=== PATIENT | female | born 1965 | race Caucasian/White ===

== ENCOUNTER 2018-04-05 08:25 | Outpatient (REF) | payer SELFPAY ==
[2018-04-05 22:11] LABS: TSH (W/Ref FT4) 5.02 uIU/mL (0.358-3.74)
== END 2018-04-05 08:26 ==
LOC: NCHCN 08:25
PROVIDERS: PCP Nurse Practitioner Family; Visit Provider Nurse Practitioner Family
DX: E03.9 Hypothyroidism, unspecified (principal)
CPT/HCPCS: 84439; 84443

== ENCOUNTER 2018-10-05 08:00 | Outpatient (REF) | payer MEDICAID, SELFPAY ==
[2018-10-05 22:26] LABS: TSH (W/Ref FT4) 6.36 uIU/mL (0.358-3.74)
[2018-10-05 22:44] LABS: FREE T4 1.06 ng/dL (0.76-1.46)
== END 2018-10-05 08:20 ==
LOC: NCHCN 08:00
PROVIDERS: PCP Nurse Practitioner Family; Visit Provider Nurse Practitioner Family
DX: E03.9 Hypothyroidism, unspecified (principal)
CPT/HCPCS: 84439; 84443

== ENCOUNTER 2019-06-08 09:46 | Outpatient (REF) | payer MEDICAID, SELFPAY ==
[2019-06-08 21:34] LABS: TSH (W/Ref FT4) 3.81 uIU/mL (0.36-3.74)
[2019-06-08 21:56] LABS: FREE T4 1.12 ng/dL (0.76-1.46)
== END 2019-06-08 10:06 ==
LOC: NCHCN 09:46
PROVIDERS: PCP Nurse Practitioner Family; Visit Provider Nurse Practitioner Family
DX: E03.9 Hypothyroidism, unspecified (principal)
CPT/HCPCS: 84439; 84443

== ENCOUNTER 2019-11-03 13:24 | Outpatient (REF) | payer MEDICAID, SELFPAY ==
[2019-11-03 21:52] LABS: TSH 1.71 uIU/mL (0.36-3.74)
== END 2019-11-03 13:44 ==
LOC: NCHCN 13:24
PROVIDERS: PCP Nurse Practitioner Family; Visit Provider Nurse Practitioner Family
DX: E03.9 Hypothyroidism, unspecified (principal); F41.1 Generalized anxiety disorder; R22.9 Localized swelling, mass and lump, unspecified
CPT/HCPCS: 84443

== ENCOUNTER 2020-08-13 16:37 | Outpatient (REF) | payer MEDICAID, SELFPAY ==
[2020-08-13 21:58] LABS: Hemoglobin A1C 5.7 % (<5.7)
[2020-08-15 15:00] LABS: ANA Interpretation Positive (Negative); ANA Titer Pattern 1:80 Homogeneous
[2020-08-16 13:21] LABS: SS-A Antibody 1.3 Units (<20.0); SS-B (La) Ab, IgG 1.3 Units (<20.0)
== END 2020-08-13 16:57 ==
LOC: NCHCN 16:37
PROVIDERS: PCP Nurse Practitioner Family; Visit Provider Nurse Practitioner Community Health
DX: R79.89 Other specified abnormal findings of blood chemistry (principal); K12.1 Other forms of stomatitis; Z13.1 Encounter for screening for diabetes mellitus
CPT/HCPCS: 83036; 86038; 86235

== ENCOUNTER 2020-09-03 17:57 | Outpatient (REF) | payer MEDICAID, SELFPAY ==
[2020-09-03 19:19] LABS: HCT 41.9 % (36.0-46.0); HGB 13.7 g/dL (11.2-15.7); MCH 29.1 pg (27.0-33.0); MCHC 32.7 % (32.0-36.0); MCV 89.1 fL (80-95); Platelet Count 304 10^3/uL (130-400); RDW 12.6 % (11.7-14.6); RDW-SD 41.1 fL; WBC 7.02 10^3/uL (4.4-10.8)
[2020-09-03 20:27] LABS: Calculated LDL 242 mg/dL (<100); Cholesterol 342 mg/dL (<200); Ferritin 35 ng/mL (8-252); HDL Cholesterol 69 mg/dL (40-60); Triglyceride 157 mg/dL (<150); Vitamin B12 332 pg/mL (193-986)
[2020-09-05 10:46] LABS: HIV-1/2 Ag & Ab Screen Negative (Negative)
== END 2020-09-03 18:17 ==
LOC: NCHCN 17:57
PROVIDERS: PCP Nurse Practitioner Family; Visit Provider Nurse Practitioner Family
DX: E78.00 Pure hypercholesterolemia, unspecified (principal); K13.79 Other lesions of oral mucosa; Z11.4 Encounter for screening for human immunodeficiency virus [HIV]
CPT/HCPCS: 80061; 85027; 87389; 82607; 82728

== ENCOUNTER 2020-09-12 12:49 | Outpatient (REF) | payer MEDICAID, SELFPAY ==
[2020-09-12 14:35] LABS: Calculated LDL 202 mg/dL (<100); Cholesterol 292 mg/dL (<200); HDL Cholesterol 66 mg/dL (40-60); Triglyceride 120 mg/dL (<150)
== END 2020-09-12 13:09 ==
LOC: NCHCN 12:49
PROVIDERS: PCP Nurse Practitioner Family; Visit Provider Nurse Practitioner Family
DX: E78.5 Hyperlipidemia, unspecified (principal)
CPT/HCPCS: 80061

== ENCOUNTER 2020-09-27 10:14 | Outpatient (REF) | payer MEDICAID, SELFPAY ==
[2020-09-27 21:54] LABS: Thyroglobulin Antibody 206 U/mL (<=60); Thyroperoxidase Antibody 447 U/mL (<=60)
[2020-10-02 16:17] LABS: RNP Ab, IgG 2.8 Units (<20.0); SS-A Antibody 1.1 Units (<20.0); Sm (Smith) Ab, IgG 1.6 Units (<20.0)
== END 2020-09-27 10:34 ==
LOC: NCHCN 10:14
PROVIDERS: PCP Nurse Practitioner Family; Visit Provider Nurse Practitioner Family
DX: R79.89 Other specified abnormal findings of blood chemistry (principal)
CPT/HCPCS: 86376; 86235

== ENCOUNTER 2020-11-12 08:10 | Outpatient (REF) | payer MEDICAID, SELFPAY ==
[2020-11-12 13:40] LABS: Calculated LDL 83 mg/dL (<100); Cholesterol 171 mg/dL (<200); HDL Cholesterol 70 mg/dL (40-60); Triglyceride 93 mg/dL (<150)
== END 2020-11-12 08:11 | disposition home or self-care (01) ==
LOC: NCHCN 08:10
PROVIDERS: PCP Nurse Practitioner Family; Visit Provider Nurse Practitioner Family
DX: E78.5 Hyperlipidemia, unspecified (principal); R73.03 Prediabetes
CPT/HCPCS: 80061; 83036

== ENCOUNTER 2021-05-20 14:50 | Outpatient (REF) | payer MEDICAID, SELFPAY ==
[2021-05-20 14:47] LABS: Hemoglobin A1C 5.8 % (<5.7)
[2021-05-20 15:07] LABS: ALT 26 U/L (14-59); AST 19 U/L (15-37); Albumin 4.1 g/dL (3.4-5.0); Alkaline Phosphatase 65 U/L (46-116); Anion Gap 8.4 mmol/L (3-11); BUN 15 mg/dL (7-18); Bilirubin, Total 0.5 mg/dL (0.2-1.0); CO2 29.6 mmol/L (21.0-32.0); CREATININE 0.7 mg/dL (0.55-1.02); Calcium 9.3 mg/dL (8.5-10.1); Chloride 106 mmol/L (98-107); Glucose 84 mg/dL (74-106); Potassium 4.2 mmol/L (3.5-5.1); Sodium 144 mmol/L (136-145); TSH 1.54 uIU/mL (0.36-3.74); Total Protein 6.9 g/dL (6.4-8.2)
== END 2021-05-20 14:51 | disposition home or self-care (01) ==
LOC: NCHCN 14:50
PROVIDERS: PCP Nurse Practitioner Family; Visit Provider Nurse Practitioner Family
DX: E03.9 Hypothyroidism, unspecified (principal); R73.03 Prediabetes
CPT/HCPCS: 80053; 83036; 84443

== ENCOUNTER 2022-05-15 12:50 | Outpatient (REF) | payer MEDICAID, SELFPAY ==
[2022-05-15 16:33] LABS: Anion Gap 5.9 mmol/L (3-11); BUN 17 mg/dL (7-18); CO2 29.1 mmol/L (21.0-32.0); CREATININE 0.8 mg/dL (0.55-1.02); Calcium 9.6 mg/dL (8.5-10.1); Chloride 103 mmol/L (98-107); Estimated GFR 86.96 (mL/min/1.73m2); Glucose 97 mg/dL (74-106); Sodium 138 mmol/L (136-145); TSH 1.69 uIU/mL (0.36-3.74)
[2022-05-15 16:53] LABS: Hemoglobin A1C 5.5 % (<5.7)
== END 2022-05-15 12:51 | disposition home or self-care (01) ==
LOC: NCHCN 12:50
PROVIDERS: PCP Nurse Practitioner Family; Visit Provider Nurse Practitioner Family
DX: Z00.00 Encounter for general adult medical examination without abnormal findings (principal); R73.03 Prediabetes; E03.9 Hypothyroidism, unspecified
CPT/HCPCS: 80048; 83036; 84443

== ENCOUNTER 2022-05-22 08:53 | Outpatient (REF) | payer MEDICAID, SELFPAY ==
--- NOTE | 2022-05-22 08:30 | PAPFT_PTH ---
PATIENT: Kiki Sheehan LOC: [facility]#:[id number] AGE/SX: 56/F ROOM: RE05/22/[address]: Milvia Hitchcock : 1965 BED: DIS: 05/22/2022 SPEC #: [id number] RECD: 05/22/22 17:38 STATUS: YEIMI REHoney #: [id number] JULIA: 05/22/22 08:[address]: Milvia Manriquez DEPT: [facility] Cytology RECD BY: Vicky Yost Tissues: 1 - CX/ENDOCX FOR PAP SMEARS Procedures: PAP THIN PREP/[facility] Screening HPV DNA PROBE Comments: [id number]
== END 2022-05-22 08:54 | disposition home or self-care (01) ==
LOC: NCHCN 08:53
PROVIDERS: PCP Nurse Practitioner Family; Visit Provider Nurse Practitioner Family
DX: Z12.4 Encounter for screening for malignant neoplasm of cervix (principal); Z11.51 Encounter for screening for human papillomavirus (HPV)
CPT/HCPCS: 88142; 87624

== ENCOUNTER 2023-05-21 14:50 | Outpatient (REF) | payer MEDICAID, SELFPAY ==
[2023-05-21 16:06] LABS: HCT 39.1 % (36.0-46.0); HGB 12.9 g/dL (11.2-15.7); MCH 29.6 pg (27.0-33.0); MCV 90 fL (80-95); MPV 10.8 fL (8.0-11.0); Platelet Count 298 10^3/uL (130-400); RBC 4.36 10^6/uL (3.93-5.22); RDW 12.5 % (11.7-14.6); RDW-SD 41.5 fL; WBC 5.09 10^3/uL (4.4-10.8)
[2023-05-21 16:29] LABS: Anion Gap 7.8 mmol/L (3-11); BUN 13 mg/dL (7-18); CO2 29.2 mmol/L (21.0-32.0); CREATININE 0.8 mg/dL (0.55-1.02); Calcium 9.7 mg/dL (8.5-10.1); Calculated LDL 111 mg/dL (<100); Chloride 102 mmol/L (98-107); Cholesterol 209 mg/dL (<200); Estimated GFR 86.42 (mL/min/1.73m2); Glucose 97 mg/dL (74-106); HDL Cholesterol 71 mg/dL (40-60); Potassium 4.2 mmol/L (3.5-5.1); Sodium 139 mmol/L (136-145); TSH 1.81 uIU/mL (0.36-3.74); Triglyceride 137 mg/dL (<150)
[2023-05-21 16:46] LABS: Hemoglobin A1C 5.8 % (<5.7)
== END 2023-05-21 14:51 | disposition home or self-care (01) ==
LOC: NCHCN 14:50
PROVIDERS: PCP Nurse Practitioner Family; Visit Provider Nurse Practitioner Family
DX: R73.03 Prediabetes (principal); E78.5 Hyperlipidemia, unspecified; E03.9 Hypothyroidism, unspecified
CPT/HCPCS: 80048; 80061; 85027; 83036; 84443

== ENCOUNTER 2024-05-16 15:01 | Outpatient (REF) | payer MEDICAID, SELFPAY ==
[2024-05-16 16:17] LABS: Hemoglobin A1C 5.9 % (<5.7)
[2024-05-16 16:20] LABS: ALT 24 U/L (14-59); AST 18 U/L (15-37); Albumin 4.2 g/dL (3.4-5.0); Alkaline Phosphatase 94 U/L (46-116); Anion Gap 8.6 mmol/L (3-11); BUN 16 mg/dL (7-18); Bilirubin, Total 0.48 mg/dL (0.2-1.0); CO2 30.4 mmol/L (21.0-32.0); CREATININE 0.9 mg/dL (0.55-1.02); Calcium 9.9 mg/dL (8.5-10.1); Calculated LDL 124 mg/dL (<100); Chloride 103 mmol/L (98-107); Cholesterol 229 mg/dL (<200); Estimated GFR 74.57 (mL/min/1.73m2); Glucose 102 mg/dL (74-106); HDL Cholesterol 75 mg/dL (40-60); Potassium 4.3 mmol/L (3.5-5.1); Sodium 142 mmol/L (136-145); TSH 1.76 uIU/Ml (0.36-3.74); Total Protein 7.3 g/dL (6.4-8.2); Triglyceride 154 mg/dL (<150)
== END 2024-05-16 15:02 | disposition home or self-care (01) ==
LOC: NCHCN 15:01
PROVIDERS: PCP Nurse Practitioner Family; Visit Provider Nurse Practitioner Family
DX: E03.9 Hypothyroidism, unspecified (principal); E78.5 Hyperlipidemia, unspecified; R73.03 Prediabetes; Z82.49 Family history of ischemic heart disease and other diseases of the circulatory system
CPT/HCPCS: 80053; 80061; 83036; 84443

== ENCOUNTER 2024-08-01 15:46 | Outpatient (REF) | payer MEDICAID, SELFPAY ==
[2024-08-01 15:28] LABS: Abs Immature Grans 0.01 10^3/uL (0.0-0.06); Absolute Basophil Count 0.04 10^3/uL (0.0-0.2); Absolute Eosinophil Count 0.17 10^3/uL (0.0-0.7); Absolute Lymphocyte Count 1.65 10^3/uL (1.2-3.4); Absolute Monocyte Count 0.53 10^3/uL (0.1-0.8); Absolute Neutrophil Count 1.94 10^3/uL (1.2-6.7); Basophils % 0.9 %; Eosinophils % 3.9 %; HCT 39.3 % (36.0-46.0); HGB 12.5 g/dL (11.2-15.7); Immature Grans % 0.2 %; MCH 28.8 pg (27.0-33.0); MCHC 31.8 % (32.0-36.0); MCV 91 fL (80-95); MPV 10.1 fL (8.0-11.0); Monocytes % 12.2 %; Neutrophils % 44.8 %; Platelet Count 310 10^3/uL (130-400); RBC 4.34 10^6/uL (3.93-5.22); RDW 12.9 % (11.7-14.6); RDW-SD 42.5 fL; WBC 4.34 10^3/uL (4.4-10.8)
[2024-08-01 15:43] LABS: ESR 13 mm/hr (0-30)
[2024-08-01 15:59] LABS: C-Reactive Protein < 0.50 mg/dL (<or=0.5); Uric Acid 5.3 mg/dL (2.6-6.0)
[2024-08-01 21:42] LABS: Rheumatoid Factor <8.6 IU/mL (<12.0)
[2024-08-02 09:44] LABS: Lyme Ab w Rflx to Lyme Confirm Negative (Negative)
[2024-08-02 09:58] LABS: Cyclic Citrullinated Peptide <2.5 U/mL (<5.0)
[2024-08-02 15:16] LABS: ANA Interpretation Positive (Negative); ANA Titer Pattern 1:160 Homogeneous
[2024-08-03 20:25] LABS: Anaplasma phagocytophilum Negative (Negative); B. miyamotoi PCR Negative (Negative); Babesia divergens/MO-1 Negative (Negative); Babesia duncani Negative (Negative); Babesia microti Negative (Negative); Ehrlichia chaffeensis Negative (Negative); Ehrlichia ewingii/canis Negative (Negative); Ehrlichia muris eauclairensis Negative (Negative)
== END 2024-08-01 15:47 | disposition home or self-care (01) ==
LOC: NCHCN 15:46
PROVIDERS: PCP Nurse Practitioner Family; Visit Provider Nurse Practitioner Family
DX: M25.50 Pain in unspecified joint (principal)
CPT/HCPCS: 85652; 86200; 87798; 84550; 85025; 86038; 86140; 86431; 86618

== ENCOUNTER 2025-06-12 14:58 | Outpatient (REF) | payer MEDICAID, SELFPAY ==
[2025-06-12 15:48] LABS: HCT 42.0 % (36.0-46.0); HGB 13.8 g/dL (11.2-15.7); MCH 29.7 pg (27.0-33.0); MCHC 32.9 % (32.0-36.0); MCV 91 fL (80-95); MPV 10.8 fL (8.0-11.0); Platelet Count 335 10^3/uL (130-400); RBC 4.64 10^6/uL (3.93-5.22); RDW 12.6 % (11.7-14.6); RDW-SD 41.8 fL; WBC 5.21 10^3/uL (4.4-10.8)
[2025-06-12 17:17] LABS: ALT 29 U/L (14-59); AST 23 U/L (15-37); Albumin 4.2 g/dL (3.4-5.0); Alkaline Phosphatase 87 U/L (46-116); Anion Gap 10.6 mmol/L (3-11); BUN 12 mg/dL (7-18); Bilirubin, Total 0.3 mg/dL (0.2-1.0); CO2 27.4 mmol/L (21.0-32.0); Calcium 9.7 mg/dL (8.5-10.1); Calculated LDL 98 mg/dL (<100); Chloride 102 mmol/L (98-107); Cholesterol 213 mg/dL (<200); Estimated GFR 85.35 (mL/min/1.73m2); Glucose 94 mg/dL (74-106); HDL Cholesterol 64 mg/dL (>or=50); Potassium 4.1 mmol/L (3.5-5.1); Sodium 140 mmol/L (136-145); TSH (W/Ref FT4) 1.47 uIU/mL (0.36-3.74); Total Protein 7.6 g/dL (6.4-8.2); Triglyceride 258 mg/dL (<150)
[2025-06-13 10:07] LABS: Hepatitis C Ab w Rflx HCV PCR Negative (Negative)
== END 2025-06-12 14:59 | disposition home or self-care (01) ==
LOC: NCHCN 14:58
PROVIDERS: PCP Nurse Practitioner Family; Visit Provider Nurse Practitioner Family
DX: R73.03 Prediabetes (principal); E03.9 Hypothyroidism, unspecified; E78.5 Hyperlipidemia, unspecified; Z13.0 Encounter for screening for diseases of the blood and blood-forming organs and certain disorders involving the immune mechanism; Z11.59 Encounter for screening for other viral diseases
CPT/HCPCS: 80053; 80061; 85027; 86803; 84443